=== PATIENT | female | born 1995 ===

== ENCOUNTER 2017-03-01 15:36 | Emergency (ER) | payer SELFPAY ==
[2017-03-01 16:14] VITALS: BP 134/80; PULSE 70; RESP 16; TEMP 99.5; O2SAT 100
--- NOTE | 2017-03-01 16:44 | RAD ---
PROCEDURE: Left Knee Radiographs. HISTORY: Pain. COMPARISON: None. FINDINGS: BONES: Bone alignment and mineralization are normal. There is no acute displaced fracture or bone destruction. JOINTS: There is a small suprapatellar joint effusion. The joint spaces are preserved. OTHER FINDINGS: None. IMPRESSION: No acute fracture or dislocation. Small suprapatellar joint effusion.
--- NOTE | 2017-03-01 17:47 | C.PDOC ---
History Of Present Illness Flory Polo is a 22 year old female, with no past medical history, who present to the emergency department complaining of left knee pain s/p fall skiing yesterday. Patient is ambulating with steady gait and denies any head injury. She denies any other medical complaints. PMD: Annie Connell Time Seen by Provider: 03/01/17 16:21 Chief Complaint (Nursing): Lower Extremity Problem/Injury History Per: Patient History/Exam Limitations: no limitations Onset/Duration Of Symptoms: Days (x1) Current Symptoms Are (Timing): Still Present Severity: Mild Pain Scale Rating Of: 7 - Knee Description Of Injury: Fell Past Medical History Reviewed: Historical Data, Nursing Documentation, Vital Signs Vital Signs: Last Vital Signs Temp 99.5 F 03/01/17 16:11 Pulse 70 03/01/17 16:11 Resp 16 03/01/17 17:54 BP 134/80 03/01/17 16:11 Pulse Ox 100 03/01/17 17:47 - Medical History PMH: No Chronic Diseases Surgical History: No Surg Hx Family History: States: Unknown Family Hx - Social History Hx Tobacco Use: No Hx Alcohol Use: No Hx Substance Use: No - Immunization History Hx Tetanus Toxoid Vaccination: No Hx Influenza Vaccination: No Hx Pneumococcal Vaccination: No Review Of Systems Except As Marked, All Systems Reviewed And Found Negative. Musculoskeletal: Positive for: Leg Pain (left knee pain) Physical Exam - Physical Exam Appears: Well, No Acute Distress Skin: Normal Color, Warm, Dry Head: Atraumatic, Normacephalic Eye(s): bilateral: Normal Inspection, EOMI Neck: Normal, Normal ROM, Supple Respiratory: Normal Breath Sounds, No Accessory Muscle Use Extremity: No Deformity, No Swelling, Other (Central lateral side of knee pain with bending) Neurological/Psych: Oriented x3, Normal Speech ED Course And Treatment O2 Sat by Pulse Oximetry: 100 (RA) Pulse Ox Interpretation: Normal Medical Decision Making Medical Decision Making: Initial Impression: Left knee pain s/p fall Initial Plan: --Knee 3 views LT [RAD] --reevaluation 16:42 Knee X-Ray FINDINGS: BONES: Bone alignment and mineralization are normal. There is no acute displaced fracture or bone destruction. JOINTS: There is a small suprapatellar joint effusion. The joint spaces are preserved. OTHER FINDINGS: None. IMPRESSION: No acute fracture or dislocation. Small suprapatellar joint effusion. --X-Ray show no fracture. Patient will be given a left knee immobilizer and crutches. Applied by CP Disposition - Disposition Referrals: Henry Su III, MD [Staff Provider] - Disposition: HOME/ ROUTINE Disposition Time: 17:45 Condition: STABLE Additional Instructions: Follow up with PMD and Ortopedist within 1-2 days. Return to Ed if feel worse. Prescriptions: Ibuprofen [Motrin Tab] 600 mg PO Q8 #30 tab Instructions: Knee Sprain (ED) Forms: [employer] (Faroese) - Clinical Impression Clinical Impression: Knee sprain - Scribe Statement Evan Jacob All medical record entries made by the Scribe were at my direction and personally dictated by me. I have reviewed the chart and agree that the record accurately reflects my personal performance of the history, physical exam, medical decision making, and the department course for this patient. I have also personally directed, reviewed, and agree with the discharge instructions and disposition.
== END 2017-03-01 17:54 | disposition home or self-care (01) ==
LOC: C.ER 15:36
DX: S83.92XA Sprain of unspecified site of left knee, initial encounter (principal); W19.XXXA Unspecified fall, initial encounter; Y93.23 Activity, snow (alpine) (downhill) skiing, snowboarding, sledding, tobogganing and snow tubing; Y92.89 Other specified places as the place of occurrence of the external cause